=== PATIENT | male | born 1955 | race Caucasian/White ===

== ENCOUNTER → 2021-08-16 | Outpatient (CLI) | payer OTHER | LOC: KOH-I 09:25 | DX: M25.561 Pain in right knee (principal); M79.89 Other specified soft tissue disorders | CPT/HCPCS: 73562 ==

== ENCOUNTER → 2021-11-17 | Outpatient (CLI) | payer BC | LOC: KOH-I 14:31 | DX: M25.461 Effusion, right knee (principal) | CPT/HCPCS: 73562 ==

== ENCOUNTER → 2021-12-08 | Outpatient (CLI) | payer BC | LOC: KOH-I 15:04 | DX: M25.511 Pain in right shoulder (principal); R07.81 Pleurodynia; M19.011 Primary osteoarthritis, right shoulder; S22.31XA Fracture of one rib, right side, initial encounter for closed fracture; S43.001A Unspecified subluxation of right shoulder joint, initial encounter; W19.XXXA Unspecified fall, initial encounter | CPT/HCPCS: 71101; 73030 ==